=== PATIENT | male | born 1950 | race Caucasian/White ===

== ENCOUNTER → 2016-12-28 | Outpatient (CLI) | payer OTHER, MEDICAID ==
[2016-12-05 09:53] VITALS: BP 76/51
--- NOTE | 2016-12-28 17:23 | MRI ---
Indication: CVA and headaches. Exam: MRI brain without contrast. Technique: Routine multiplanar multisequence imaging was performed through the brain without contras t. Comparison: 11/23/2016. Findings: The ventricles are borderline enlarged with diffuse mild to moderate prominence of the cor tical sulci. There is no abnormal signal on the diffusion-weighted data set which would suggest any type of acute ischemia . The midline structures are unremarkable. The vascular structures show jesse l flow voids. The 7th and 8th nerve complexes are symmetric and normal size and signal intensity. Th ere are several punctate areas of abnormal signal scattered along the periventricular white matter b ilaterally. No extra-axial fluid collection or mass is seen. There is mild mucosal thickening scatte red throughout the paranasal sinuses with no air-fluid levels. Impression: Mild to moderate cortical atrophy and minimal chronic microischemic changes in the deep white matter with no acute intracranial abnormality seen. Mild chronic pansinusitis. Reported By:
== END ==
LOC: RAD 11:02
PROVIDERS: ATTEND Internal Medicine
DX: I63.8 Other cerebral infarction (principal); S09.90XS Unspecified injury of head, sequela; X58.XXXS Exposure to other specified factors, sequela
CPT/HCPCS: 70551

== ENCOUNTER 2017-02-06 19:06 | Emergency (ER) | payer OTHER, MEDICAID ==
[2017-02-06 19:12] VITALS: BP 120/60; BMI 14.9
--- NOTE | 2017-02-06 19:59 | DR.GENAD ---
HPI - PCP Primary Care Physician: Sunil - HPI Comment HPI Comment: right flank with rash - Complaint/Symptoms Chief Complaint:: "Last night I was itching a little on my side. When I scratched it something popped and then it just started hurting. It has been hurting ever since." Self Treatment fo Chief Complaint: Patient put lidocain on it earlier. He says that it helped a little. - Nurses notes reviewed Nurses Notes Review: Yes - Source History Provided: Patient - Mode of Arrival Mode of Arrival: Ambulatory - Timing Onset of Chief Complaint: 02/05/17 Came on: Gradually - Duration Duration: Constant How lon Duration: Days - Location Location: right flank - Severity Severity: Moderate - Modifying Factors Worsens:: nothing - Associated Signs and Symptoms Associated Signs and Symptoms: pain PMH - PMH Past Medical History: Yes Past Medical History: Anxiety, COPD, Diabetes, Dyslipidemia, GERD, Hypertension Past Surgical History: Yes Surgical History: Other Past Surgical History Comment: Lung surgery. - Family History History of Family Medical Conditions: Yes Family Medical History: Diabetes Mellitus, Hypertension - Social History Does patient currently use any type of tobacco product: No Have you used tobacco products in the last 12 months: No Type of Tobacco Use: Smokeless Does any household member use tobacco: No Alcohol Use: Occasionally Do you use any recreational Drugs:: No Lives With: Family Lives Where: Home - infectious screening In the last 2 months have you had wt loss of >10#?: NO Have you had fever, night sweats or hemotysis?: No Have you traveled outside the country in the last 6 months?: No Isolation: Standard ROS - Review of Systems Constitutional: No Symptoms Reported Eyes: No Symptoms Reported ENTM: No Symptoms Reported Respiratoy: No Symptoms Reported Cardiovascular: No Symptoms Reported Gastrointestinal/Abdominal: No Symptoms Reported Genitourinary: No Symptoms Reported Neurological: No Symptoms Reported Musculoskeletal: No Symptoms Reported Integumentary: Rash (right flank with shingles appearance) PE - Vital Signs Vitals: Temperature 99.8 F Pulse Rate 71 Respiratory Rate 18 Blood Pressure [Right Arm] 107/63 Blood Pressure [Left Arm] 138/81 Blood Pressure 120/60 O2 Sat by Pulse Oximetry 94 - General Limitations: No Limitations General Appearance: Alert, In No Apparent Distress - Head Head Exam: Normal Inspection - Eyes Eye exam: EOMI. negative: Scleral Icterus, Conjunctival Injection - ENT ENT Exam: Normal Exam External Ear Exam: Normal External Inspection - Neck Neck Exam: Normal Inspection, Full ROM, Trachea Midline - Respiratory Respiratory Exam: negative: Accessory Muscle Use, Respiratory Distress - Extremities Extremities Exam: Normal Inspection, Full ROM - Back Back Exam: Normal Inspection - Neurologic Neurological Exam: Alert, Oriented X3, CN II-XII Intact - Psychiatric Psychiatric Exam: Flat Affect - Skin Skin Exam: Intact, Rash (right flank consistent with shingles). negative: Normal Color - Diagnosis Discharge Problem: Shingles rash Qualifiers: Herpes zoster complications: without complications Qualified Code(s): B02.9 - Zoster without complications - Discharge Plan Condition: Stable Prescriptions: Acyclovir 400 mg PO Q4H #50 tab Hydrocodone-Acet 10/325 mg [NORCO 10 MG/325 MG *] 1 tab PO TID PRN #15 tab PRN Reason: Pain - Follow ups/Referrals Follow ups/Referrals: Clemente Barber [Primary Care Provider] - 3 days - Instructions
[2017-02-06] MEDS ORDERED: ZOVIRAX PO ONE (20:06)
[2017-02-06] MEDS ORDERED: ULTRAM PO ONE (20:07)
[2017-02-06] MEDS ORDERED: VALTREX TAB 1 GM PO ONE ×2 (20:36→20:37)
[2017-02-06] MEDS ORDERED: ULTRAM ONE (20:38)
== END 2017-02-06 20:46 | disposition home or self-care (01) ==
LOC: ER 19:26
DX: R21 Rash and other nonspecific skin eruption (principal); B02.9 Zoster without complications
CPT/HCPCS: 99282

== ENCOUNTER 2017-02-26 10:49 | Emergency (ER) | payer OTHER, MEDICAID ==
[2017-02-26 10:57] VITALS: BMI 14.1
--- NOTE | 2017-02-26 11:06 | DR.GENAD ---
HPI - Complaint/Symptoms Chief Complaint Doctors Comments: Patient presents with right chest wall pain. History of COPD on 2.5L/min oxygen ; negative cardiac disease. Denies fever Chief Complaint:: pt hurting in right chest wall at this time - Source History Provided: Patient - Mode of Arrival Mode of Arrival: EMS - Timing Onset of Chief Complaint: 02/26/17 PMH - PMH Past Medical History: Yes Past Medical History: Anxiety, COPD, Diabetes, Dyslipidemia, GERD, Hypertension Past Surgical History: Yes Surgical History: Other - Family History History of Family Medical Conditions: Yes Family Medical History: Diabetes Mellitus, Hypertension - Social History Does patient currently use any type of tobacco product: No Have you used tobacco products in the last 12 months: No Type of Tobacco Use: None How many years tobacco product used: 30 Does any household member use tobacco: No Do you use any recreational Drugs:: No Lives With: Family Lives Where: Home - infectious screening In the last 2 months have you had wt loss of >10#?: NO Have you had fever, night sweats or hemotysis?: No Have you traveled outside the country in the last 6 months?: No Isolation: Standard ROS - Review of Systems Eyes: No Symptoms Reported ENTM: No Symptoms Reported Respiratoy: No Symptoms Reported Cardiovascular: No Symptoms Reported Gastrointestinal/Abdominal: No Symptoms Reported Genitourinary: No Symptoms Reported Neurological: No Symptoms Reported Musculoskeletal: No Symptoms Reported Integumentary: No Symptoms Reported Hematologic/Lymphatic: No Symptoms Reported Endocrine: No Symptoms Reported Psychiatric: No Symptoms Reported All Other Systems: Reviewed and Negative PE - Vital Signs Vitals: Temperature 100.9 F Pulse Rate [Right Brachial] 96 Pulse Rate 109 Respiratory Rate 17 Blood Pressure [Right Arm] 128/63 Blood Pressure [Left Arm] 138/81 Blood Pressure 171/83 O2 Sat by Pulse Oximetry 97 - General Limitations: No Limitations General Appearance: Alert, In No Apparent Distress - Head Head Exam: Normal Inspection, Atraumatic - Eyes Eye exam: Normal Appearance, PERRL, EOMI - ENT ENT Exam: Normal Exam External Ear Exam: Normal External Inspection TM/Canal Exam: Bilateral Normal Nose Exam: Normal Nose Exam Mouth Exam: Normal Inspection Throat Exam: Normal Inspection - Neck Neck Exam: Normal Inspection - Chest Chest Inspection: Normal Inspection - Respiratory Respiratory Exam: Normal Lung Sounds Bilat Respiratory Exam: Bilateral Clear to Auscultation - Cardiovascular Cardiovascular Exam: Regular Rate - Abdominal Exam Abdominal Exam: Normal Inspection Abdominal Tenderness: negative: RUQ, RLQ, LUQ, LLQ, Epigastrium, Suprapubic, Diffuse, Mild, Moderate, Severe, Other - Extremities Extremities Exam: Normal Inspection, Full ROM - Back Back Exam: Normal Inspection - Neurologic Neurological Exam: Alert, Oriented X3, CN II-XII Intact - Psychiatric Psychiatric Exam: Normal Affect - Skin Skin Exam: Warm, Dry, Intact Course - Treatment Treatment: Patient got up to use the urinal and slipped to the floor hitting his left faith sustain a superficial laceration of 2cm. The area was clearned and dermabond applied. There was no LOC. - Reevaluation 1st: Unchanged ROR - Labs Reviewed Result Diagrams: 02/26/17 11:53 02/26/17 11:53 Laboratory: WBC 19.1 X10^3/uL (3.6-10.0) H 02/26/17 11:53 RBC 5.00 X10^6/uL (4.7-6.0) 02/26/17 11:53 Hgb 14.2 g/dL (13.5-18.0) 02/26/17 11:53 Hct 44.1 % (42.0-54.0) 02/26/17 11:53 MCV 88.2 fL (80.0-100.0) 02/26/17 11:53 MCH 28.4 pg (27.0-34.0) 02/26/17 11:53 MCHC 32.2 g/dL (33.0-35.0) L 02/26/17 11:53 RDW 15.4 % (11.6-16.5) 02/26/17 11:53 Plt Count 266 X10^3/uL (150.0-450.0) 02/26/17 11:53 Plt Count Comment Adequate (ADEQUATE) 02/26/17 11:53 MPV 9.5 fL (7.4-11.0) 02/26/17 11:53 Neut % 93.3 % (42.0-75.0) H 02/26/17 11:53 Lymph % 2.8 % (21.0-51.0) L 02/26/17 11:53 Sequoyah % 3.2 % (0.0-13.0) 02/26/17 11:53 Eos % 0.2 % (0.9-2.9) L 02/26/17 11:53 Baso % 0.5 % (0.2-1.0) 02/26/17 11:53 Neut # 17.8 x10^3/uL (2.2-4.8) H 02/26/17 11:53 Lymph # 0.5 X10^3/uL (1.3-2.9) L 02/26/17 11:53 Sequoyah # 0.6 x10^3/uL (0.3-0.8) 02/26/17 11:53 Eos # 0.0 x10^3/uL (0.0-0.2) 02/26/17 11:53 Baso # 0.1 X10^3/uL (0.0-0.1) 02/26/17 11:53 Absolute Nucleated RBC 0.0 /100WBC 02/26/17 11:53 Total Counted 100 02/26/17 11:53 Neutrophils % (Manual) 84 % (39-76) H 02/26/17 11:53 Band Neutrophils % 4 % (0-10) 02/26/17 11:53 Lymphocytes % (Manual) 8 % (13-43) L 02/26/17 11:53 Monocytes % (Manual) 4 % (4-9) 02/26/17 11:53 Plt Morphology Comment Normal (NORMAL) 02/26/17 11:53 RBC Morphology Normal (NORMAL) 02/26/17 11:53 Sodium 143 mmol/L (136-145) 02/26/17 11:53 Corrected Sodium 143 mmol/L (136-145) 02/26/17 11:53 Potassium 4.6 mmol/L (3.5-5.1) 02/26/17 11:53 Chloride 106 mmol/L (98-107) 02/26/17 11:53 Carbon Dioxide 29.3 mmol/L (21-32) 02/26/17 11:53 BUN 8 mg/dL (7-18) 02/26/17 11:53 Creatinine 1.02 mg/dL (0.70-1.30) 02/26/17 11:53 Est GFR (MDRD) Af Amer > 60 (>60) 02/26/17 11:53 Est GFR (MDRD) Non-Af > 60 (>60) 02/26/17 11:53 Glucose 118 mg/dL (65-99) H 02/26/17 11:53 Calcium 8.6 mg/dL (8.5-10.1) 02/26/17 11:53 Corrected Calcium TNP 02/26/17 11:53 Total Bilirubin 0.50 mg/dL (0.2-1.0) 02/26/17 11:53 AST 18 Units/L (15-37) 02/26/17 11:53 ALT 14 Units/L (12-78) 02/26/17 11:53 Alkaline Phosphatase 96 Units/L (46-116) 02/26/17 11:53 Total Protein 7.2 g/dL (6.4-8.2) 02/26/17 11:53 Albumin 3.7 g/dL (3.4-5.0) 02/26/17 11:53 Globulin 3.5 g/dL (2.5-4.5) 02/26/17 11:53 Albumin/Globulin Ratio 1.1 Ratio (1.1-2.1) 02/26/17 11:53 - XRAY XRAY Interpreted by: Radiologist (Repeat chest film (CT with contrast for comparison) requested by radiologist: Examination of the mediastinum demonstratedno difinite evidence for mediastinal masses, enlarged mediastinal adenopathy, or enlarged hilar adenopathy. No pleural effusions are identified. No chest wall or axillary abnormality is identified. Those portions of the upper abdominal organs visualized were within normal limits. Bilateral upper lobe pleural parenchymal scarring is present unchanged form the prior examination. This is associated with hilar elevation and rightward tracheal deviation. Hyperinflation is present. Changes of centrilobular emphysema are present most prominent in the upper lobes. Bibasilar chronic interstitial lung changes are present with some foci of honeycombing suggestive of fibrousis and scattered areas of focal bronchiectasis. There is an area of focal bronchiectasis with peribronchial infiltrate in the left mid lung accounting for the opacity noted on the recent chest x ray. This is best visualized on series 5 axial image 32 and series 7 coronal image 32. Follow up if this area until the peribronchial infiltrate has resolved is recommended. Impression: Area of focal peribroncchial thickening. focal bronchiectasis and peribronchial infiltrate in the left midlung accounting for the density noted on the recent chest x ray. Follow up CT in 3 months is rcommended to assess for resolution/ chain. Emphysematous COPD with chronic intersitial lung dizzy, Pleural parenchymal scarring in the upper lobes as previously described right greater than left.), Self (Chest: emphysematous no definite infiltrate) - Diagnosis Discharge Problem: Emphysematous COPD, Pleural-parenchymal scarring Upper Lobes COPD (chronic obstructive pulmonary disease) Qualifiers: COPD type: unspecified COPD Qualified Code(s): J44.9 - Chronic obstructive pulmonary disease, unspecified - Discharge Plan Condition: Stable - Follow ups/Referrals Follow ups/Referrals: NFD,None [Primary Care Provider] - 3 days - Instructions
[2017-02-26] MEDS ORDERED: SOLU-Medrol 125 MG VIAL IVP ONE (11:07)
[2017-02-26] MEDS ORDERED: DUONEB 0.5 MG/3 MG NEB ONE (11:08)
[2017-02-26] MEDS ORDERED: SOLU-Medrol 125 MG VIAL ONE (11:09)
[2017-02-26] MEDS ORDERED: TYLENOL 325 MG TAB PO ONE ×2 (11:09→11:12)
[2017-02-26] MEDS ORDERED: DUONEB 0.5 MG/3 MG ONE (11:11)
[2017-02-26] MEDS ORDERED: NS 1000 ML 1,000 ML IV SCH (12:00)
[2017-02-26 12:11] LABS: BASOPHILS # (AUTO) 0.1 X10^3/uL (0.0-0.1); BASOPHILS % (AUTO) 0.5 % (0.2-1.0); EOSINOPHILS % (AUTO) 0.2 % (0.9-2.9); HEMATOCRIT 44.1 % (42.0-54.0); HEMOGLOBIN 14.2 g/dL (13.5-18.0); LYMPHOCYTES # (AUTO) 0.5 X10^3/uL (1.3-2.9); LYMPHOCYTES % (AUTO) 2.8 % (21.0-51.0); MEAN CORPUSCULAR HEMOGLOBIN 28.4 pg (27.0-34.0); MEAN CORPUSCULAR HGB CONC 32.2 g/dL (33.0-35.0); MEAN CORPUSCULAR VOLUME 88.2 fL (80.0-100.0); MEAN PLATELET VOLUME 9.5 fL (7.4-11.0); MONOCYTES # (AUTO) 0.6 x10^3/uL (0.3-0.8); MONOCYTES % (AUTO) 3.2 % (0.0-13.0); NEUTROPHILS # (AUTO) 17.8 x10^3/uL (2.2-4.8); NEUTROPHILS % (AUTO) 93.3 % (42.0-75.0); PLATELET COUNT 266 X10^3/uL (150.0-450.0); RED CELL DISTRIBUTION WIDTH 15.4 % (11.6-16.5); WHITE BLOOD COUNT 19.1 X10^3/uL (3.6-10.0)
[2017-02-26 12:26] LABS: BAND NEUTROPHILS % 4 % (0-10); PLATELET MORPHOLOGY COMMENT NORMAL (NORMAL)
[2017-02-26 12:28] LABS: ALANINE AMINOTRANSFERASE 14 Units/L (12-78); ALBUMIN 3.7 g/dL (3.4-5.0); ALKALINE PHOSPHATASE 96 Units/L (46-116); ASPARTATE AMINO TRANSFERASE 18 Units/L (15-37); BLOOD UREA NITROGEN 8 mg/dL (7-18); CALCIUM 8.6 mg/dL (8.5-10.1); CARBON DIOXIDE 29.3 mmol/L (21-32); CHLORIDE 106 mmol/L (98-107); COR NA(FOR HYPERGLY) 143 mmol/L (136-145); CREATININE 1.02 mg/dL (0.70-1.30); GLUCOSE 118 mg/dL (65-99); SODIUM 143 mmol/L (136-145); TOTAL PROTEIN 7.2 g/dL (6.4-8.2); eGFR BLACK RACES > 60 (>60); eGFR NON BLACK RACES > 60 (>60)
--- NOTE | 2017-02-26 13:09 | RAD ---
HISTORY: Dyspnea Study: Chest one view Comparison: December 05, 2016 Findings: The heart is within normal limits in size. There is pleural-parenchymal scarring and right upper lob e volume loss with hilar retraction bilaterally unchanged in appearance from the prior examination. The lungs are hyperinflated consistent with COPD. No acute alveolar infiltrates or pleural effusions are identified. There is a slightly irregular focal left mid lung density new when compared with th e prior examination. The should be further evaluated with chest CT with contrast. The bony thorax is unremarkable. IMPRESSION: COPD Bilateral upper lobe pleural-parenchymal scarring with volume loss. Irregular parenchymal density in the left mid lung new since the prior examination. Chest CT with co ntrast is recommended for further evaluation. Reported By:
[2017-02-26] MEDS ORDERED: NS 100 ML IV 100 ML IV ONE (14:02)
--- NOTE | 2017-02-26 14:57 | CT ---
HISTORY: Follow up abnormal chest x-ray Study: CT chest with contrast Comparison: December 05, 2016 Technique: Axial post-contrast images with coronal and sagittal reformats. Dose reduction procedures were used with MA/kv adjusted for body size. Findings: Examination of the mediastinum demonstrated no definite evidence for mediastinal masses, enlarged me diastinal adenopathy, or enlarged hilar adenopathy. No pleural effusions are identified. No chest wa ll or axillary abnormality is identified. Those portions of the upper abdominal organs visualized we re within normal limits. Bilateral upper lobe pleural-parenchymal scarring is present unchanged from the prior examination. This is associated with hilar elevation and rightward tracheal deviation. Hy perinflation is present. Changes of centrilobular emphysema are present most prominent in the upper lobes. Bibasilar chronic interstitial lung changes are present with some foci of honeycombing sugges tive of fibrosis and scattered areas of focal bronchiectasis. There is an area of focal bronchiectas is with peribronchial infiltrate in the left mid lung accounting for the opacity noted on the recent chest x-ray. This is best visualized on series 5 axial image 32 and series 7 coronal image 32. Foll ow up of this area until the peribronchial infiltrate has resolved is recommended. IMPRESSION: Area of focal peribronchial thickening, focal bronchiectasis and peribronchial infiltrate in the lef t midlung accounting for the density noted on the recent chest x-ray. Follow up CT in 3 months is re commended assess for resolution/chain Emphysematous COPD with chronic interstitial lung dizzy Pleural-parenchymal scarring in the upper lobes as previously described right greater than left Reported By:
[2017-02-26] MEDS ORDERED: ZITHROMAX TAB 250 MG PO ONE ×2 (15:15→15:18)
[2017-02-26 15:25] VITALS: BP 128/72
[2017-02-26] MEDS ORDERED: DUONEB 0.5 MG/3 MG NEB SCH (21:00)
== END 2017-02-26 15:53 | disposition home or self-care (01) ==
LOC: ER 10:50
DX: J43.8 Other emphysema (principal); J44.9 Chronic obstructive pulmonary disease, unspecified; J98.4 Other disorders of lung
CPT/HCPCS: 36415; 71010; 71260; 80053; 85025; 94640; 96365; 99283; A4222; Q0144; J2930; J7620

== ENCOUNTER 2017-03-01 19:22 | Emergency (ER) | payer OTHER, MEDICAID ==
[2017-03-01 19:37] VITALS: BP 132/69; BMI 14.6
--- NOTE | 2017-03-01 20:25 | CT ---
STUDY: CT HEAD WITHOUT CONTRAST HISTORY: Fall. Hit head on Sunday. Headache in right hand weakness since. COMPARISON: Brain MRI from December 28, 2016. TECHNIQUE: Multiple axial images of the head were obtained from the skull base to the vertex without administration of IV contrast. Automated exposure control (AEC) was utilized to adjust the MA and/o r kV. Findings: The sulci, cisterns and ventricles are prominent consistent with diffuse volume loss a. There are confluent and scattered foci of low attenuation in the periventricular and subcortical whi te matter of both hemispheres. This is a nonspecific finding which likely represents microangiopathi c change in a patient of this age. There is no evidence of acute territorial infarction, hemorrhage, mass, mass effect or midline shift . There are no abnormal extra-axial fluid collections. There is no evidence of acute osseous abnormality or significant soft tissue swelling. IMPRESSION: 1. No evidence of acute intracranial abnormality. 2. Nonspecific white matter change and volume loss as described. 3. If there remains strong clinical concern for acute intracranial abnormality, then an MRI examinat ion should be considered for further evaluation. Reported By:
--- NOTE | 2017-03-01 21:41 | DR.GENAD ---
HPI - PCP Primary Care Physician: reyna - HPI Comment HPI Comment: Pt fell Sunday night and hit his head . He3 was seen in this ED and l brow laceration was repaired. He c/o headache today and l habd weakness. - Complaint/Symptoms Chief Complaint Doctors Comments: Headache Chief Complaint:: head hurting, loss of strength in right hand - Nurses notes reviewed Nurses Notes Review: Yes - Source History Provided: Patient - Mode of Arrival Mode of Arrival: Ambulatory - Timing Onset of Chief Complaint: 02/26/17 Came on: Gradually - Duration Duration: Intermittent Duration: Minutes - Severity Severity: Moderate PMH - PMH Past Medical History: Yes Past Medical History: Anxiety, COPD, CVA, Diabetes, Dyslipidemia, GERD, Hypertension, [place] Past Medical History Comment: pt states that he had an mi and stroke 12/05/16 Past Surgical History: Yes Surgical History: Other - Family History History of Family Medical Conditions: Yes Family Medical History: Diabetes Mellitus, Hypertension - Social History Does patient currently use any type of tobacco product: Yes Have you used tobacco products in the last 12 months: No Type of Tobacco Use: Smokeless Does any household member use tobacco: No Alcohol Use: Rarely Do you use any recreational Drugs:: No Lives With: Family Lives Where: Home - infectious screening In the last 2 months have you had wt loss of >10#?: NO Have you had fever, night sweats or hemotysis?: No Have you traveled outside the country in the last 6 months?: No Isolation: Standard ROS - Review of Systems Constitutional: No Symptoms Reported Eyes: No Symptoms Reported ENTM: No Symptoms Reported Respiratoy: No Symptoms Reported Cardiovascular: No Symptoms Reported Gastrointestinal/Abdominal: No Symptoms Reported Neurological: Headache, Weakness Musculoskeletal: Left, Arm Integumentary: Wound Hematologic/Lymphatic: No Symptoms Reported Endocrine: No Symptoms Reported Psychiatric: No Symptoms Reported All Other Systems: Reviewed and Negative PE - Vital Signs Vitals: Temperature 98.7 F Pulse Rate 84 Respiratory Rate 16 Blood Pressure [Right Arm] 128/72 Blood Pressure [Left Arm] 138/81 Blood Pressure 132/69 O2 Sat by Pulse Oximetry 94 - General Limitations: No Limitations General Appearance: Alert, In No Apparent Distress - Head Head Exam: Other (l brow bandage is clean and dry) - Eyes Eye exam: PERRL, EOMI - ENT ENT Exam: Normal Exam, Normal Oropharynx, Mucous Membranes Moist External Ear Exam: Normal External Inspection Nose Exam: Normal Nose Exam Mouth Exam: Normal Inspection Throat Exam: Normal Inspection - Neck Neck Exam: Normal Inspection - Chest Chest Inspection: Normal Inspection - Respiratory Respiratory Exam: Normal Lung Sounds Bilat - Cardiovascular Cardiovascular Exam: Regular Rate, Normal Rhythm, Normal Heart Sounds - Abdominal Exam Abdominal Exam: Normal Inspection - Extremities Extremities Exam: Normal Inspection - Back Back Exam: Normal Inspection - Neurologic Neurological Exam: Alert, Oriented X3, Normal Gait - Psychiatric Psychiatric Exam: Normal Affect - Skin Skin Exam: Warm, Dry, Intact, Normal Color - Diagnosis Discharge Problem: Headache - Discharge Plan Disposition: 01 HOME, SELF-CARE Condition: Stable - Follow ups/Referrals - Instructions
[2017-03-01] MEDS ORDERED: TYLENOL ELIXIR 325 MG UDC PO PRN (21:50)
[2017-03-01] MEDS ORDERED: TYLENOL 325 MG TAB PO ONE ×2 (21:50→21:51)
== END 2017-03-01 22:19 | disposition home or self-care (01) ==
LOC: ER 19:38
DX: R51 Headache (principal)
CPT/HCPCS: 70450; 99282